=== PATIENT | male | born 1955 | race Caucasian/White ===

== ENCOUNTER 2025-04-22 10:30 | Emergency (ER) | payer MEDICARE, SELFPAY ==
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
--- OUTSIDE RECORDS SUMMARY | 2025-04-22 10:32 | XMS_ITS | Clinical Summary ---
Author Organization [place] Address [facility] [place] [address] Care Team Providers Care Meteorological Aide Name Role Phone Clinic, Yadiel Zayas Primary Care Provider [phone] Allergies No known active allergies Medications No known medications Immunizations Immunization Administration Dates Next Due TDAP (Adacel,Boostrix) 08/03/2023 Social History Tobacco Use Types Packs/Day Years Used Date Smoking Tobacco: Never Assessed Adolescent Education Answer Date Record ed Getting School Help Needed Not on file 08/03 Sex and Gender Information Value Date Recorded Sex Assigned at Not on file Legal Sex Male 4:12 AM MEDICAL AFFAIRS SPECIALIST Gender Identity Not on file Sexual Orientation Not on file Last Filed Vital Signs Vital Sign Reading Time Taken Comments Blood Pressure 166/94 08/03/2023 5:00 PM MEDICAL AFFAIRS SPECIALIST Pulse 82 08/03/2023 5:00 PM MEDICAL AFFAIRS SPECIALIST Temperature 36.6 C (97.9 F) 08/03/2023 2:02 PM MEDICAL AFFAIRS SPECIALIST Respiratory Rate 24 08/03/2023 4:45 PM MEDICAL AFFAIRS SPECIALIST Oxygen Saturation 98% 08/03/2023 4:45 PM MEDICAL AFFAIRS SPECIALIST Inhaled Oxygen Concentration - - Weight 95.3 kg (210 lb) 08/03/2023 2:02 PM MEDICAL AFFAIRS SPECIALIST Height - - Body Mass Index - - Plan of Treatment Health Maintenance Due Date Last Done Comments ADVANCE CARE PLANNING 1955 ANNUAL REVIEW OF HM ORDERS 1954 CT COLONOGRAPHY 1954 FIT 1954 FLEX SIG 1954 sDNA (Cologuard) 1954 COLONOSCOPY 1964 COLORECTAL CANCER SCREENING 1964 HEPATITIS C SCREENING 1972 LIPID 1994 FALL RISK ASSESSMENT 2019 PNEUMOCOCCAL VACCINE 50+ YEARS (2 of 2 - PCV20 or PCV21) 06/27/2021 06/27/2020 COVID-19 VACCINE (6 - season) 2024 07/03/2023, 07/29/2022, 07/25/2021, Additional history exists MEDICARE ANNUAL WELLNESS VISIT 07/03/2024 07/03/2023, 05/25/2022, 07/07/2020 PHQ-2 (once per calendar year) 2024 INFLUENZA VACCINE (#1) 2025 , 07/29/2022, 06/04/2021, Additional history exists DIABETES SCREENING 08/03/2026 08/03/2023 RSV VACCINE (1 - 1-dose 75+ series) 2029 DTAP/TDAP/TD VACCINE (3 - Td or Tdap) 08/03/2033 08/03/2023, 12/21/2010 ZOSTER VACCINE Completed 09/08/2020, 07/09/2020 HPV VACCINE (No Doses Required) Completed MENINGITIS VACCINE Aged Out No longer eligible based on patient's age to complete this topic Procedures Procedure Name Priority Date/Time Associated Diagnosis Comments BASIC METABOLIC PANEL STAT 08/03/2023 2:07 PM MEDICAL AFFAIRS SPECIALIST from Last 3 Months or Most Recently Relevant to Health Maintenance Results * (ABNORMAL) Basic metabolic panel (08/03/2023 2:07 PM MEDICAL AFFAIRS SPECIALIST) Sodium 141 135 - 145 mmol/L 08/03/2023 2:36 PM MEDICAL AFFAIRS SPECIALIST [facility] Comment:Reference intervals for this test were updated on 06/13/2023 to more accurately reflect our healthy population. There may be differences in the flagging of prior results with similar values performed with this method. Interpretation of those prior results can be made in the context of the updated reference intervals. Potassium 3.9 3.4 - 5.3 mmol/L 08/03/2023 2:36 PM MEDICAL AFFAIRS SPECIALIST [facility] Chloride 106 98 - 107 mmol/L 08/03/2023 2:36 PM MEDICAL AFFAIRS SPECIALIST [facility] Carbon Dioxide (CO2) 25 22 - 29 mmol/L 08/03/2023 2:36 PM MEDICAL AFFAIRS SPECIALIST [facility] Anion Gap 10 7 - 15 mmol/L 08/03/2023 2:36 PM MEDICAL AFFAIRS SPECIALIST LABORATORY Urea Nitrogen 25.6(H) 8.0 - 23.0 mg/dL 08/03/2023 2:36 PM MEDICAL AFFAIRS SPECIALIST LABORATORY Creatinine 1.12 0.67 - 1.17 mg/dL 08/03/2023 2:36 PM MEDICAL AFFAIRS SPECIALIST LABORATORY GFR Estimate 71 >60 mL/min/1. 73m2 08/03/2023 2:36 PM MEDICAL AFFAIRS SPECIALIST LABORATORY Calcium 9.0 8.8 - 10.2 mg/dL 08/03/2023 2:36 PM MEDICAL AFFAIRS SPECIALIST LABORATORY Glucose 129(H) 70 - 99 mg/dL 08/03/2023 2:36 PM MEDICAL AFFAIRS SPECIALIST LABORATORY Blood BLOOD SPECIMEN / Unknown Venipuncture / Unknown 08/03/2023 2:07 PM MEDICAL AFFAIRS SPECIALIST 08/03/2023 2:16 PM MEDICAL AFFAIRS SPECIALIST us Amadou Ren MD LAB - BLOOD ORDERABLES Fi nal Result Performing Organization Address City/State/[facility] Co de Phone Number LABORATORY [facility] [address] Lab (1st floor, no room number) [place] [address], [facility] [phone] from Last 3 Months or Most Recently Relevant to Health Maintenance Insurance [employer] MEDICARE ADVANTAGE [employer]AGE Care Teams Meteorological Aide Relationship Specialty Start Date End Date [facility], Yadiel Zayas [address] [place] [address] [phone] PCP - General 08/03/23
[2025-04-22 10:55] VITALS: BP 116/69; PULSE 84; RESP 18; TEMP 36.3; O2SAT 97; BMI 27.3
--- NOTE | 2025-04-22 11:12 | CRLHL7_ITS ---
For Patients: As a result of the Cures Act, medical imaging exams and procedure reports are released immediately into your electronic medical record. You may view this report before your referring provider. If you have questions, please contact your health care provider. Indication: Cough Technique: PA and lateral views of the chest. Comparison: None. Findings: Normal cardiomediastinal silhouette. Right midlung airspace opacities. No pleural effusion or visualized pneumothorax. Impression: Right midlung airspace opacities are compatible with infection. Dictated by Shalom Nichols MD @ 04/22/2025 11:59:35 AM (Electronically Signed)
--- NOTE | 2025-04-22 11:18 | ED.GENADULT ---
HPI - General Adult General Chief complaint: Cough Stated complaint: cold symptoms Time Seen by Provider: 04/22/25 11:01 History of Present Illness HPI narrative: This 69-year-old male comes in reporting 4 days of cough. He states that he felt feverish with subsequent diaphoresis 2 days ago. He reports some nausea and post-tussive dry heaving at times also. He arrives here with normal vital signs. He does not report any shortness of breath. Prior to this he was in good health. Related Data Home Medications ?Medication ?Instructions ?Recorded ?Confirmed atorvastatin 20 mg tablet 20 mg PO QPM 04/22/25 04/22/25 fluoxetine 10 mg capsule 10 mg PO QAM 04/22/25 04/22/25 lisinopril 10 mg tablet 10 mg PO DAILY 04/22/25 04/22/25 lisinopril 20 mg tablet 20 mg PO DAILY 04/22/25 04/22/25 Previous Rx's ?Medication ?Instructions ?Recorded amoxicillin 875 mg-potassium 1 tab PO BID #20 tabs 04/22/25 clavulanate 125 mg tablet azithromycin 250 mg tablet 250 mg PO DAILY #6 tabs 04/22/25 (Zithromax Z-Mikael) Allergies Allergy/AdvReac Type Severity Reaction Status Date / Time No Known Drug Allergies Allergy Verified 04/22/25 10:53 Review of Systems Status of ROS: Reports: 10 or more systems reviewed and unremarkable except as noted in History and below Narrative: Constitutional: No fevers, no weight gain or loss. Eyes: No discharge. No vision changes. HENT: No congestion, no sore throat, no ear pain. Cardiovascular: No chest pain, no palpitations. Respiratory: No shortness of breath, no wheezes. Cough as reported above. Gastrointestinal: No abdominal pain, no diarrhea. Genitourinary: No dysuria, no hematuria. Musculoskeletal: Normal range of motion. Skin: No rashes, no pruritis. Neurological: No dizziness, weakness, sensory change, speech change. Endo/Heme/Allergies: No bruising or bleeding. No polydipsia. Pysch: no suicidality, no anxiety, no insomnia. All other systems reviewed and are negative. [facility] Surgical History (Updated 12/05/22 @ 15:40 by Marybel Marroquin ~ [facility], [facility]) S/P total right hip arthroplasty (01/27/09) ?Z96.641 - Presence of right artificial hip joint (ICD-10) Social History Smoking Status: Never smoker How often do you have a drink containing alcohol: never AUDIT-C Alcohol total score: 0 Non-prescribed substance use: denies use Exam Narrative: Exam Narrative: Constitutional: Well-developed, well-nourished, no acute distress. HEENT: Normocephalic, atraumatic. Neck: Normal range of motion. Nontender. Supple. Heart: Regular. No murmurs. Normal rate. Intact distal pulses. Lungs: Clear to auscultation. No wheezes, rhonchi, or rales. Chest discomfort when coughing or taking a deep breath. Abdomen: Normal bowel sounds. Nontender. No rebound tenderness. Genitalia: Deferred. Back: No midline tenderness. Normal range of motion. Extremities: Normal range of motion. No injury. Skin: Intact. No rash. Warm. No erythema or pallor. Neurologic: No altered sensation. No weakness. Alert and oriented. Psychiatric: No suicidality. No anxiety or depression. No insomnia. Nursing notes and vitals signs are reviewed. Const: Vital Signs, click to edit/add: Vital Signs - 24 hr 04/22/25 10:55 Temperature 97.4 F L Pulse Rate [Pulse Oximeter] 84 Respiratory Rate 18 Blood Pressure [Ri ght Upper Arm] 116/69 Pulse Oximetry 97 Oxygen Delivery Me thod Room Air Course Vital Signs Vital signs: Initial Vital Signs Temperature 97.4 F L 04/22/25 10:55 Temperature Source Temporal Artery Scan 04/22/25 10:55 Pulse Rate 84 04/22/25 10:55 Respiratory Rate 18 04/22/25 10:55 Blood Pressure 116/69 04/22/25 10:55 Blood Pressure Mean 84 04/22/25 10:55 Pulse Oximetry 97 04/22/25 10:55 Oxygen Delivery Method Room Air 04/22/25 10:55 Vital Signs Temperature 97.4 F L 04/22/25 10:55 Pulse Rate 84 04/22/25 10:55 Respiratory Rate 18 04/22/25 10:55 Blood Pressure 116/69 04/22/25 10:55 Pulse Oximetry 97 04/22/25 10:55 Oxygen Delivery Method Room Air 04/22/25 10:55 Temperature 97.4 F L 04/22/25 10:55 Pulse Rate 84 04/22/25 10:55 Respiratory Rate 18 04/22/25 10:55 Blood Pressure 116/69 04/22/25 10:55 Pulse Oximetry 97 04/22/25 10:55 Oxygen Delivery Method Room Air 04/22/25 10:55 Medical Decision Making MDM Narrative Medical decision making narrative: This patient comes in with persistent coughing and report of a subjective fever. Nasal pharyngeal swab returns negative for viruses tested. Chest x-ray is obtained and does show sign of an infiltrate suggestive of pneumonia. The patient has normal vital signs and is okay to return home. I did provide prescriptions for Augmentin and Zithromax along with some tablets of Tylenol 3 for symptomatic relief. I advised him to return if not improving or worsening. Lab Data Labs: Lab Results 04/22/25 Range/Units 10:57 SARS-CoV-2 (PCR) Negative SARS-CoV-2 (Negative) Influenza Type A (PCR) Negative PCR FLU A (Negative) Influenza Type B (PCR) Negative PCR FLU B (Negative) RSV (PCR) Negative PCR RSV (Negative) Discharge Plan Discharge Clinical Impression: Pneumonia Patient Disposition: Home, Self-Care Condition: Stable Additional Instructions: Take medications as prescribed. Follow up with MD return if worsening. Prescriptions: New azithromycin [Zithromax Z-Mikael] 250 mg tablet 250 mg PO DAILY Qty: 6 0RF amoxicillin-pot clavulanate 875-125 mg tablet 1 tab PO BID Qty: 20 0RF No Action atorvastatin 20 mg tablet 20 mg PO QPM lisinopril 20 mg tablet 20 mg PO DAILY lisinopril 10 mg tablet 10 mg PO DAILY fluoxetine 10 mg capsule 10 mg PO QAM [facility] Al[facility]: [facility] Inst[facility]
[2025-04-22 11:45] LABS: PCR FLU A Negative PCR FLU A (Negative); PCR FLU B Negative PCR FLU B (Negative); PCR RSV Negative PCR RSV (Negative); SARS PCR* Negative SARS-CoV-2 (Negative)
== END 2025-04-22 12:45 | disposition home or self-care (01) ==
LOC: ED 12:36
PROVIDERS: Emergency Provider Emergency Medicine Emergency Medical Services
DX: J18.9 Pneumonia, unspecified organism (principal)
CPT/HCPCS: 71046; 87631; 99283; 99284